=== PATIENT | male | born 1960 | race Caucasian/White ===

== ENCOUNTER 2018-03-18 16:26 | Emergency (ER) | payer SELFPAY ==
[2018-03-18 16:38] VITALS: RESP 16
--- NOTE | 2018-03-18 17:37 | CP.PCM.CON ---
<AlexiJodie Hussain - Last Filed: 03/18/18 17:59> Meds Home Medications: Home Medication List Medication Instructions Recorded Confirmed Type Cephalexin [Keflex] 500 mg PO TID #40 capsule 03/18/18 Rx Allergies/Adverse Reactions: Allergies Allergy/AdvReac Type Severity Reaction Status Date / Time No Known Allergies Allergy Verified 03/18/18 16:38 Results - Vital Signs Recent Vital Signs: Last Vital Signs Temp 98.1 F 03/18/18 16:36 Pulse 84 03/18/18 16:36 Resp 16 03/18/18 16:36 BP 136/80 03/18/18 16:36 Pulse Ox 98 03/18/18 16:36 Assessment & Plan (1) Nailbed injury Status: Acute Disposition Counseled Patient/Family Regarding: Studies Performed, Diagnosis, Need For Followup, Rx Given Disposition: HOSPICE - HOME Disposition Time: 17:56 Condition: STABLE Additional Instructions: Please follow up in Podiatry clinic. Soak and bandage your toe each day. Take antibiotics. Prescriptions: Cephalexin [Keflex] 500 mg PO TID #40 capsule Referrals: [facility] at [facility] [Outside] Stand Alone Forms: [employer] (Kyrgyz) - POA Present On Arrival: None Diagnosis - Discharge Diagnosis (1) Nailbed injury Status: Acute <Danica Parisi - Last Filed: 03/19/18 17:15> History of Present Illness - History of Present Illness History of Present Illness: 57 y/o male seen in ED regarding right big toe nail injury. Pt is intoxicated at time of evaluation. He states he dropped an air conditioning unit on his toe 2-3 days ago. States he noted some bleeding under and at the nail edges. Denies noting any breaks in the skin or any pus coming from the site. Denies attempting any treatment. States the pain is mild-moderate in nature, mostly when pressure is applied to the big toe. Denies F/C/N/V/CP/SOB Review of Systems - Review of Systems All systems: reviewed and no additional remarkable complaints except (per HPI) Past Patient History - Infectious Disease Hx of Infectious Diseases: None - Past Social History Smoking Status: Smoker Currrent Status Unknown - PSYCHIATRIC Hx Substance Use: No - SURGICAL HISTORY Hx Surgeries: No - ANESTHESIA Hx Anesthesia: No Physical Exam - Constitutional Appears: Well, Non-toxic, No Acute Distress - Extremities Exam Additional comments: RLE focused exam: Vasc: DP/PT pulses palpable 2/4. Temperature gradient warm to cool. CFT < 3 sec to all digits. Derm: Dry subungual hematoma noted to right hallucal toenail. No purulence, no active drainage, no erythema, no fluctuance, no clinical signs of infection Neuro: Protective sensation grossly intact Ortho: Mild tenderness to palpation of right hallucal toenail and distal tip of right hallux. Hallux and 1st MPJ ROM is WNL. - Neurological Exam Neurological exam: Alert, Oriented x3 - Psychiatric Exam Psychiatric exam: Normal Affect, Normal Mood Results - Vital Signs Recent Vital Signs: Last Vital Signs Temp 98.1 F 03/18/18 16:36 Pulse 84 03/18/18 16:36 Resp 16 03/18/18 16:36 BP 136/80 03/18/18 16:36 Pulse Ox 98 03/18/18 16:36 Assessment & Plan - Assessment and Plan (Free Text) Assessment: 57 y/o male with right hallucal toenail subungual hematoma secondary to trauma Plan: Pt seen and evaluated in ED Discussed with attending Dr. Ramirez X-rays of R foot reviewed- no acute fracture or dislocation, no acute osseous changes noted R hallucal toenail cleansed with saline and betadine solution Nail plate left intact at this time as no evidence of lysis R hallux dressed with bacitracin and 4x4 gauze Pt's son advised to clean toe with warm water and soap daily and dress with antibiotic ointment and bandaid Pt advised to return to ED if he notices any signs of pus, active drainage, significant swelling, or any constitutional symptoms such as fever, chills, chest pain or SOB Pt to f/u in [facility] with Dr. Ramirez
--- NOTE | 2018-03-18 17:49 | RAD ---
PROCEDURE: Radiographs of the right great toe. TECHNIQUE:: AP radiograph of the right foot, with oblique and lateral view of the right great toe. COMPARISON: None. FINDINGS: BONES: No acute fracture or destructive bony lesion identified. JOINTS: Degenerative changes seen at the 1st metatarsophalangeal joint moderately. SOFT TISSUES: Normal. OTHER FINDINGS: None. IMPRESSION: No acute fracture or destructive bony lesion appreciated right great toe. degenerative changes seen at the 1st metatarsophalangeal joint.
[2018-03-18 18:11] VITALS: BP 132/76; PULSE 86; TEMP 98.4; O2SAT 99
--- NOTE | 2018-03-18 23:16 | C.PDOC ---
History Of Present Illness 57 year old male presents to the ED with son ( who is also a patient in the ED) for evaluation of an injury to his right 1st toe. Patient states he was carrying an air conditioner when he accidentally dropped it onto his toe. Patient states this happened several days ago, and is unable to recall exactly which day. He is also c/o a lump to the back of his scalp and a lump and pain to his right calf. Patient appears intoxicated and admits to drinking earlier today. Patient denies fever, chills, active bleeding. Time Seen by Provider: 03/18/18 16:55 Chief Complaint (Nursing): Abnormal Skin Integrity History Per: Patient, Family (son ) History/Exam Limitations: no limitations Onset/Duration Of Symptoms: Hrs Current Symptoms Are (Timing): Still Present Additional History Per: Patient, Family Past Medical History Reviewed: Historical Data, Nursing Documentation, Vital Signs Vital Signs: Last Vital Signs Temp 98.4 F 03/18/18 18:10 Pulse 86 03/18/18 18:10 Resp 16 03/18/18 18:10 BP 132/76 03/18/18 18:10 Pulse Ox 99 03/23/18 09:29 - Medical History PMH: No Chronic Diseases Surgical History: No Surg Hx Family History: States: Unknown Family Hx - Social History Hx Tobacco Use: (unknown) Hx Alcohol Use: Yes Hx Substance Use: No - Immunization History Hx Tetanus Toxoid Vaccination: No Hx Influenza Vaccination: No Hx Pneumococcal Vaccination: No Review Of Systems Constitutional: Negative for: Fever, Chills Skin: Positive for: Other (injury to right 1st toe ) Physical Exam - Physical Exam Appears: Non-toxic, No Acute Distress Skin: Normal Color, Warm, Dry, Other (scarring to right arm, hematoma to right burr ) Head: Atraumatic, Normacephalic, Other (soft, round, mobile lipoma to right posterior scalp ) Eye(s): bilateral: Normal Inspection Oral Mucosa: Moist Neck: Supple Extremity: Normal ROM, No Tenderness, Capillary Refill (less than 2 seconds ), No Deformity, No Swelling, Other (subungual hematoma to right 1st toe. blood and discoloration noted around the nail ) Neurological/Psych: Other (intoxicated, answering questions ) ED Course And Treatment O2 Sat by Pulse Oximetry: 99 (on RA) Pulse Ox Interpretation: Normal Medical Decision Making Medical Decision Making: Progress: Right foot great toe XR ordered, results show no evidence of fracture. Patient was evaluated by senior technical architect [employer] scout, who opted not to remove the nail at this time, stating it will likely fall off on its own. Area was cleaned and wrapped. On re-exam, patient is resting comfortably, showing no signs of distress and is stable for discharge with antibiotics. Patient is advised to f/u with podiatry care within 1-2 days for further evaluation, and/or return to the ED if symptoms persist or worsen. Disposition Counseled Patient/Family Regarding: Diagnosis, Need For Followup - Disposition Referrals: [facility] at [facility] [Outside] Disposition: HOSPICE - HOME Disposition Time: 18:00 Condition: STABLE Additional Instructions: Please follow up in Podiatry clinic. Soak and bandage your toe each day. Take antibiotics. Prescriptions: Cephalexin [Keflex] 500 mg PO TID #40 capsule Forms: [employer] (Wolof) - Clinical Impression Clinical Impression: Nail bed injury - Scribe Statement The provider has reviewed the documentation as recorded by the Scribe (Krystal Doe) Provider Attestation: All medical record entries made by the Scribe were at my direction and personally dictated by me. I have reviewed the chart and agree that the record accurately reflects my personal performance of the history, physical exam, medical decision making, and the department course for this patient. I have also personally directed, reviewed, and agree with the discharge instructions and disposition.
--- NOTE | 2018-03-19 17:06 | CP.PCM.CON ---
History of Present Illness - History of Present Illness History of Present Illness: 57 y/o male seen in ED regarding right big toe nail injury. Pt is intoxicated at time of evaluation. He states he dropped an air conditioning unit on his toe 2-3 days ago. States he noted some bleeding under and at the nail edges. Denies noting any breaks in the skin or any pus coming from the site. Denies attempting any treatment. States the pain is mild-moderate in nature, mostly when pressure is applied to the big toe. Denies F/C/N/V/CP/SOB Past Patient History - Infectious Disease Hx of Infectious Diseases: None - Past Social History Smoking Status: Smoker Currrent Status Unknown - PSYCHIATRIC Hx Substance Use: No - SURGICAL HISTORY Hx Surgeries: No - ANESTHESIA Hx Anesthesia: No Meds Home Medications: Home Medication List Medication Instructions Recorded Confirmed Type Cephalexin [Keflex] 500 mg PO TID #40 capsule 03/18/18 Rx Allergies/Adverse Reactions: Allergies Allergy/AdvReac Type Severity Reaction Status Date / Time No Known Allergies Allergy Verified 03/18/18 16:38 Results - Vital Signs Recent Vital Signs: Last Vital Signs Temp 98.4 F 03/18/18 18:10 Pulse 86 03/18/18 18:10 Resp 16 03/18/18 18:10 BP 132/76 03/18/18 18:10 Pulse Ox 99 03/18/18 23:25
== END 2018-03-18 18:11 | disposition hospice, home (50) ==
LOC: C.ER 16:26
DX: S99.921A Unspecified injury of right foot, initial encounter (principal); W20.8XXA Other cause of strike by thrown, projected or falling object, initial encounter; Y92.89 Other specified places as the place of occurrence of the external cause

== ENCOUNTER 2018-09-06 13:22 | Emergency (ER) | payer OTHER ==
--- NOTE | 2018-09-06 13:42 | C.PDOC ---
History Of Present Illness 58 yo male come in for evaluation of Right scalp lipoma gradually developed for past months. Pt sts, " its became more painful for past few days". Otherwise, pt denies fever, chills, headache, dizziness, visual changes, wound draining or any other active complaints. Ambulate to Ed for evaluation, not in any apparent distress. Time Seen by Provider: 09/06/18 13:38 Chief Complaint (Nursing): Abnormal Skin Integrity History Per: Patient Past Medical History Reviewed: Historical Data, Nursing Documentation, Vital Signs Vital Signs: Last Vital Signs Temp 97.8 F 09/06/18 13:34 Pulse 86 09/06/18 13:34 Resp 18 09/06/18 13:34 BP 122/71 09/06/18 13:34 Pulse Ox 98 09/06/18 13:34 - Medical History PMH: No Chronic Diseases Family History: States: Unknown Family Hx - Social History Hx Tobacco Use: (unknown) Hx Alcohol Use: Yes Hx Substance Use: No - Immunization History Hx Tetanus Toxoid Vaccination: No Hx Influenza Vaccination: No Hx Pneumococcal Vaccination: No Review Of Systems Except As Marked, All Systems Reviewed And Found Negative. Constitutional: Negative for: Fever, Chills Eyes: Negative for: Vision Change ENT: Negative for: Ear Discharge, Nose Discharge, Throat Pain Cardiovascular: Negative for: Chest Pain Skin: Positive for: Lesions Neurological: Negative for: Weakness, Numbness, Altered Mental Status, Headache, Dizziness Physical Exam - Physical Exam Appears: Well, Non-toxic, No Acute Distress Skin: Normal Color, Warm Head: Atraumatic, Normacephalic, Other (Right occipital soft mobila mass 3cm diameter, (+) flactulance, no erythema, no discharge, no palpable deformity.) Eye(s): bilateral: PERRL, EOMI Ear(s): Bilateral: Normal Nose: No Discharge Oral Mucosa: Moist Tongue: Normal Appearing Lips: Normal Appearing Throat: No Erythema, No Drooling Neck: Trachea Midline, No Midline Cervical Tenderness, No Paracervical Tenderness, No Step Off Deformity, Supple Lymphatic: No Adenopathy (cervical) Extremity: Normal ROM, No Tenderness, No Pedal Edema, No Deformity, No Swelling Neurological/Psych: Oriented x3, Normal Speech, Normal Motor, Normal Sensation, Normal Reflexes ED Course And Treatment O2 Sat by Pulse Oximetry: 98 Progress Note: On re-eval, pt is afebrile, hemodynamicalys table. NOn-toxic. Ambulatory in ED with stable gait. head: Right occipital lipoma s/p I&D. neuorlogicaly intact. Pt advised return to ED in 2 days for re-evaluation. return if any new chnages. - Incision & Drainage Of Abscess Anesthesia: Lidocaine 2% Prep Used: Betadine Procedure: Incised W/Scalpel Blade#: (11), Drained Pus, Irrigated Cavity W/Saline, Probed To Break Up Loculations Disposition Counseled Patient/Family Regarding: Diagnosis, Need For Followup - Disposition Referrals: [facility] at [facility] [Outside] Disposition: HOME/ ROUTINE Disposition Time: 14:00 Condition: STABLE Additional Instructions: Return to ED in 2 days for re-evaluation. return at any time if any worsening or new changes. Instructions: Abscess Incision and Drainage (DC) Forms: [employer] (Slovak) - Clinical Impression Clinical Impression: Abscess
[2018-09-06] MEDS ORDERED: Lidocaine 2% Inj (20ml) INFIL ONE (13:58)
[2018-09-06] MEDS ORDERED: Lidocaine 2% MPF (5 ml) Inj ONE (14:03)
[2018-09-06 14:07] VITALS: BP 122/71; PULSE 86; RESP 18; TEMP 97.8; O2SAT 98
== END 2018-09-06 14:31 | disposition home or self-care (01) ==
LOC: C.ER 13:22
DX: L02.811 Cutaneous abscess of head [any part, except face] (principal)

== ENCOUNTER 2018-09-09 11:32 | Emergency (ER) | payer OTHER ==
[2018-09-09 11:44] VITALS: BP 112/72; PULSE 79; RESP 18; TEMP 98.6; O2SAT 97
--- NOTE | 2018-09-09 12:41 | C.PDOC ---
History Of Present Illness 58 y/o male presents to the ED for wound check of an abscess drained 3 days ago behind the right ear. no complaints. no fever. Time Seen by Provider: 09/09/18 12:17 Chief Complaint (Nursing): Wound Check History Per: Patient History/Exam Limitations: no limitations Current Symptoms Are (Timing): Better Location Of Injury: Right: Head (right occipital scalp medial to ear) Quality Of Symptoms: Swollen, Draining Severity: None Past Medical History Reviewed: Historical Data, Nursing Documentation, Vital Signs Vital Signs: Last Vital Signs Temp 98.6 F 09/09/18 11:44 Pulse 79 09/09/18 11:44 Resp 18 09/09/18 11:44 BP 112/72 09/09/18 11:44 Pulse Ox 97 09/09/18 11:44 Family History: States: Unknown Family Hx - Social History Hx Tobacco Use: (unknown) Hx Alcohol Use: Yes Hx Substance Use: No - Immunization History Hx Tetanus Toxoid Vaccination: No Hx Influenza Vaccination: No Hx Pneumococcal Vaccination: No Review Of Systems Constitutional: Negative for: Fever, Chills ENT: Negative for: Ear Pain Skin: Positive for: Other (incised lesion on right scalp). Negative for: Rash Neurological: Negative for: Weakness, Numbness Physical Exam - Physical Exam Appears: Non-toxic, No Acute Distress Head: Normacephalic, Swelling (mild, with fluctuance at site of of i and d behind right ear. no overlying erythema or warmth. able to express thick blood tinged discharge with no difficulty until lesion flat. no overlying erythema or warmth. ) Neurological/Psych: Oriented x3, Normal Speech, Normal Cognition ED Course And Treatment O2 Sat by Pulse Oximetry: 97 (RA) Pulse Ox Interpretation: Normal Medical Decision Making Medical Decision Making: mild swelling/flucutance noted to area of i and d, able to express thick discharge, slightly bloody, until wound flat. pt advised to apply warm compresses. Disposition Counseled Patient/Family Regarding: Diagnosis, Need For Followup - Disposition Disposition: HOME/ ROUTINE Disposition Time: 12:40 Condition: GOOD Additional Instructions: Apply warm compresses to affected area 2-3 times per day. If any swelling or fullness occurs behind right ear again, return to ER for further evaluation. Instructions: Abscess Drainage, Percutaneous (DC) Forms: [employer] (Portuguese), General Discharge Instructions - Clinical Impression Clinical Impression: Encounter for wound re-check
== END 2018-09-09 12:46 | disposition home or self-care (01) ==
LOC: C.ER 11:32
DX: Z48.00 Encounter for change or removal of nonsurgical wound dressing (principal)